=== PATIENT | female | born 1990 | race Caucasian/White ===

== ENCOUNTER 2019-04-02 10:03 | Emergency (ER) | payer OTHER ==
[~2019-04-02] VITALS: Ht 165.1 cm; Wt 94.8 kg
[2019-04-02 10:14] VITALS: Ht 165.1 cm; Wt 94.8 kg
[2019-04-02 12:52] VITALS: BP 117/74
== END 2019-04-02 12:52 | disposition home or self-care (01) ==
LOC: ED 10:03
DX: N39.0 Urinary tract infection, site not specified (principal); J45.909 Unspecified asthma, uncomplicated; Z98.890 Other specified postprocedural states

== ENCOUNTER 2019-07-08 22:15 | Emergency (ER) | payer OTHER ==
[~2019-07-08] VITALS: Ht 165.1 cm; Wt 100.2 kg
[2019-07-08 22:22] VITALS: Ht 165.1 cm; Wt 100.2 kg
[2019-07-09 00:05] VITALS: BP 114/72
== END 2019-07-09 00:06 | disposition home or self-care (01) ==
LOC: ED 22:15
DX: K08.89 Other specified disorders of teeth and supporting structures (principal); J45.909 Unspecified asthma, uncomplicated; Z98.890 Other specified postprocedural states

== ENCOUNTER 2019-12-26 10:28 | Emergency (ER) | payer OTHER ==
[~2019-12-26] VITALS: Ht 165.1 cm; Wt 95.0 kg
[2019-12-26 10:30] VITALS: Ht 165.1 cm; Wt 95.0 kg
[2019-12-26 11:22] LABS: microscopic required? NO
[2019-12-26 11:55] LABS: BASOPHIL % 0.6 % (0-2); PLATELET COUNT 314 x10^3mcL (130-400); RED CELL DISTRIBUTION WIDTH 13.3 % (11.5-14.5)
[2019-12-26 12:08] LABS: CALCIUM 8.7 mg/dL (8.5-10.1); CARBON DIOXIDE 27.6 mmol/L (21-32); CHLORIDE SERUM 106 mmol/L (98-107); CREATININE SERUM 0.9 mg/dL (0.6-1.0); GFR1 > 60 mL/min; GLUCOSE SERUM 74 mg/dL (74-106); POTASSIUM SERUM 4.1 mmol/L (3.5-5.1); SODIUM SERUM 140 mmol/L (136-145)
[2019-12-26 12:12] LABS: ALBUMIN 3.5 g/dL (3.4-5.0); ALKALINE PHOSPHATASE 47 U/L (46-116); ALT/SGPT 21 U/L (14-59); AST/SGOT 11 U/L (15-37); BILIRUBIN TOTAL 0.15 mg/dL (0.20-1.00); LIPASE 132 IU/L (73-393); TOTAL PROTEIN, SERUM 7.3 g/dL (6.4-8.2)
[2019-12-26 12:22] LABS: urine erythrocyte NEGATIVE (NEGATIVE)
[2019-12-26 13:17] LABS: AMPHETAMINE QUAL UR NONE DETECTED (See below)
[2019-12-26 13:40] VITALS: BP 111/69
== END 2019-12-26 13:40 | disposition home or self-care (01) ==
LOC: ED 10:28
PROVIDERS: Student in an Organized Health Care Education/Training Program
DX: R11.2 Nausea with vomiting, unspecified (principal); R10.9 Unspecified abdominal pain; R42 Dizziness and giddiness; R30.0 Dysuria; R10.30 Lower abdominal pain, unspecified; R39.15 Urgency of urination; J45.909 Unspecified asthma, uncomplicated; Z98.890 Other specified postprocedural states
CPT/HCPCS: J1885; Q9967

== ENCOUNTER 2020-07-28 07:17 | Emergency (ER) | payer OTHER ==
[~2020-07-28] VITALS: Ht 165.1 cm; Wt 111.6 kg
[2020-07-28 07:36] VITALS: Ht 165.1 cm; Wt 111.6 kg
[2020-07-28 09:49] VITALS: BP 129/76
== END 2020-07-28 09:49 | disposition home or self-care (01) ==
LOC: ED 07:17
DX: S39.012A Strain of muscle, fascia and tendon of lower back, initial encounter (principal); J45.909 Unspecified asthma, uncomplicated; Z98.890 Other specified postprocedural states; X50.0XXA Overexertion from strenuous movement or load, initial encounter; Y93.89 Activity, other specified; Y92.89 Other specified places as the place of occurrence of the external cause; Y99.8 Other external cause status
CPT/HCPCS: J1885

== ENCOUNTER 2020-09-22 20:27 | Emergency (ER) | payer OTHER ==
[~2020-09-22] VITALS: Ht 165.1 cm; Wt 108.9 kg
[2020-09-22 20:45] VITALS: Ht 165.1 cm; Wt 108.9 kg
[2020-09-22 23:40] VITALS: BP 113/81
== END 2020-09-22 23:40 | disposition home or self-care (01) ==
LOC: ED 20:27
DX: J45.901 Unspecified asthma with (acute) exacerbation (principal); Z98.890 Other specified postprocedural states